=== PATIENT | female | born 1965 | race African-American/Black ===

== ENCOUNTER 2018-01-21 09:36 | Emergency (ER) | payer MEDICAID, OTHER ==
[~2018-01-21] VITALS: Ht 165.1 cm; Wt 84.7 kg
[2018-01-21 10:56] LABS: BASOPHILS % 0.4 % (0.0-2.0); EOSINOPHILS % 1.7 % (0.0-5.0); HEMATOCRIT. 36.6 % (36.0-48.0); HEMOGLOBIN. 12.1 g/dL (12.0-16.0); MEAN CORPUSCULAR HEMOGLOBIN 29.6 pg (28.0-32.0); MEAN CORPUSCULAR VOLUME 89.7 fL (81.0-99.0); MEAN PLATELET VOLUME 8.3 fl (7.4-10.4); MONOCYTES % 6.5 % (2.0-8.0); NEUTROPHILS % 64.4 % (40.0-76.0); PLATELET 367 x1000/uL (130-400); RED BLOOD CELL COUNT 4.08 mill/uL (4.2-5.4); RED CELL DISTRIBUTION WIDTH 14.4 % (11.6-14.6)
[2018-01-21 11:02] LABS: PROTHROMBIN TIME 10.7 sec (9.4-11.6)
[2018-01-21 11:04] LABS: CHLORIDE 108 mEq/L (98-107)
[2018-01-21] MEDS ORDERED: POTASSIUM CHLORIDE 20MEQ TABLET SR PO ONE (12:00)
[2018-01-21] MEDS: KCL 20MEQ/100ML PREMIX 100 ML IV SCH ×2 (12:15→14:15)
[2018-01-21 16:02] LABS: CHLORIDE 112 mEq/L (98-107)
[2018-01-21 17:01] VITALS: BP 128/78
== END 2018-01-21 17:03 | disposition home or self-care (01) ==
LOC: ER 09:36
DX: S80.12XA Contusion of left lower leg, initial encounter (principal); E87.6 Hypokalemia; X58.XXXA Exposure to other specified factors, initial encounter; Y93.9 Activity, unspecified; Y92.9 Unspecified place or not applicable; Z90.710 Acquired absence of both cervix and uterus
CPT/HCPCS: 36415; 71045; 80048; 80053; 83880; 84484; 85025; 85610; 93005; 93971; 96365; 96366; 99285; J3480; Z7610

== ENCOUNTER 2019-12-30 10:44 | Emergency (ER) | payer OTHER ==
[~2019-12-30] VITALS: Ht 165.1 cm; Wt 79.5 kg
[2019-12-30 13:09] LABS: BASOPHILS % 0.6 % (0.0-2.0); EOSINOPHILS % 2.3 % (0.0-5.0); HEMATOCRIT. 35.2 % (36.0-48.0); HEMOGLOBIN. 11.5 g/dL (12.0-16.0); LYMPHOCYTES % 31.5 % (20.0-50.0); MEAN CORPUSCULAR HEMOGLOBIN 28.8 pg (28.0-32.0); MEAN CORPUSCULAR VOLUME 87.8 fL (81.0-99.0); MEAN PLATELET VOLUME 8.4 fl (7.4-10.4); MONOCYTES % 5.5 % (2.0-8.0); NEUTROPHILS % 60.1 % (40.0-76.0); PLATELET 279 x1000/uL (130-400); RED CELL DISTRIBUTION WIDTH 16.3 % (11.6-14.6)
[2019-12-30 13:16] LABS: CHLORIDE 109 mEq/L (98-107)
[2019-12-30 13:20] LABS: PROTHROMBIN TIME 10.3 sec (9.6-11.0)
[2019-12-30 13:54] LABS: CLARITY URINE TURBID (CLEAR); COLOR URINE RED (YELLOW); KETONES URINE NEGATIVE (NEGATIVE); LEUKOCYTE ESTERASE URINE 3+ (NEGATIVE); NITRITE URINE NEGATIVE (NEGATIVE); OCCULT BLOOD URINE 3+ (NEGATIVE); PH URINE 6.5 (4.5-8.0); PROTEIN URINE 3+ (NEGATIVE); SPECIFIC GRAVITY URINE 1.014 (1.005-1.030); UROBILINOGEN URINE 0.2 E.U./dL (0.2-1.0)
[2019-12-30 14:11] LABS: *AMPHETAMINES SCREEN URINE NEGATIVE (NEGATIVE); *BARBITURATES SCREEN URINE NEGATIVE (NEGATIVE); *BENZODIAZEPINES SCREEN URINE NEGATIVE (NEGATIVE); *COCAINE SCREEN URINE PRESUMTIVE POSITIVE (NEGATIVE); CANNABINOID URINE SCREEN NEGATIVE (NEGATIVE); METHADONE URINE SCREEN NEGATIVE (NEGATIVE); OPIATES URINE SCREEN NEGATIVE (NEGATIVE)
[2019-12-30 14:12] LABS: PHENCYCLIDINE URINE SCREEN NEGATIVE (NEGATIVE)
[2019-12-30] MEDS ORDERED: IOHEXOL-300 100 ML BOTTLE ONE (15:16)
[2019-12-30] MEDS ORDERED: HYDRALAZINE 20MG/ML VIAL IV NR (16:15)
[2019-12-30 18:53] VITALS: BP 110/78
== END 2019-12-30 18:54 | disposition home or self-care (01) ==
LOC: ER 10:44
DX: N20.0 Calculus of kidney (principal); F31.9 Bipolar disorder, unspecified; F20.9 Schizophrenia, unspecified; F14.10 Cocaine abuse, uncomplicated
CPT/HCPCS: 36415; 74177; 80053; 80305; 81003; 81025; 82270; 83690; 85025; 85610; 87086; 93005; 99285; Q9967